=== PATIENT | female | born 1995 | race Caucasian/White ===

== ENCOUNTER → 2017-06-10 13:33 | Outpatient (CLI) | payer BC | END | disposition home or self-care (01) | LOC: D.LDO 13:33 | DX: O36.8130 Decreased fetal movements, third trimester, not applicable or unspecified (principal); Z3A.00 Weeks of gestation of pregnancy not specified ==

== ENCOUNTER → 2017-07-29 11:19 | Outpatient (CLI) | payer BC ==
[2017-07-29 12:12] LABS: PROTEIN - URINE 14.4 mg/dL (0.0-11.9)
== END | disposition home or self-care (01) ==
LOC: D.LDO 11:19
PROVIDERS: Obstetrics & Gynecology
DX: O16.3 Unspecified maternal hypertension, third trimester (principal); Z3A.31 31 weeks gestation of pregnancy; O36.8130 Decreased fetal movements, third trimester, not applicable or unspecified

== ENCOUNTER 2017-08-31 15:18 | Inpatient (IN) | payer BC ==
[2017-08-31] VITALS (23 sets, daily range): BP systolic 142–187; BP diastolic 72–107; BMI 49.3
[~2017-08-31] VITALS: Ht 172.7 cm; Wt 147.0 kg
--- NOTE | ~2017-08-31 | OP ---
PATIENT NAME: ELLIOT TORRES MEDICAL RECORD: [id number] :93 LOCATION:[id number] ADMISSION DATE:08/31/17 SURGEON: HOMAR COLIN MD DATE OF OPERATION: 08/31/2017 PREOPERATIVE DIAGNOSES: 1. Intrauterine at 36 weeks. 2. Severe preeclampsia, remote from delivery. POSTOPERATIVE DIAGNOSES: 1. Intrauterine at 36 weeks. 2. Severe preeclampsia, remote from delivery. PROCEDURE: A primary low transverse section with vacuum assist. SURGEON: Homar Colin MD ESTIMATED BLOOD LOSS: 1000 cc. INTRAVENOUS FLUIDS: Per anesthesia record. FINDINGS: 1. Viable female infant, Apgars 9 at 1 and 9 at 5. 2. Placenta delivered manually intact, 3-vessel cord. 3. Grossly normal adnexa bilaterally. SPECIMENS: Placenta and cord for gases. COMPLICATIONS: None apparent. PROCEDURE IN DETAIL: The patient was taken to the operating room where regional anesthesia was achieved without difficulty. At this point, the patient was prepped and draped in normal sterile fashion in the dorsal lithotomy position. SCDs were on and functioning appropriately. A catheter was in place and bladder was draining freely. Following prep and drape, a Pfannenstiel skin incision was made, extended downward to the underlying subcutaneous fat to level of the fascia, which was then excised in the midline and extended bilaterally using the Pastrana scissors. The superior and inferior aspects of the fascial incision were then grasped with Jessú clamps times 2, tented upward, and sharply dissected from the underlying rectus muscle using the Bovie cautery and Pastrana scissors. The rectus muscles were then bluntly in the midline and the peritoneum entered sharply at the superior aspect of the incision using the Metzenbaum scissors. Peritoneal incision was made inferiorly and laterally using the Metzenbaum scissors. A bladder blade was then placed into the pelvis, then a bladder flap was created by excising the anterior leaf of the broad ligament across the lower uterine segment. A low transverse incision was then made and extended by pressure on the superior and inferior aspects of the incision. The infant's head was noted to be extended. A Kiwi vacuum was then placed on the occiput and correction to head flexion was achieved without traction on the neck resulting in immediate delivery of the vertex, one application, no pop offs. No evidence of trauma. No traction placed on the neck. Following delivery of the body, the infant was bulb suctioned. Cord was clamped times 2, cut, and the infant was handed to the awaiting nursery team. At this point, cord was obtained for gases. The placenta was removed manually intact, 3-vessel cord was noted. The uterus was exteriorized, cleared OPERATIVE REPORT [id number] ELLIOT TORRES of all clots and debris, and vigorously massaged until good uterine tone was noted. The uterine incision was repaired with 0 Vicryl in a running locked fashion times 2 with good hemostasis noted. The posterior cul-de-sac was then thoroughly irrigated and uterus replaced into the pelvis. The anterior cul-de-sac was then thoroughly irrigated and good hemostasis was again noted from the uterine incision. At this point, counts were correct times 2 for sponges, needles, and instruments. The fascia was repaired with 0 loop PDS times 1 and the skin repaired with john. The patient tolerated procedure well and was transferred to postanesthesia recovery stable without incident. TRANSINT:[id number] Voice Confirmation ID: [id number] DOCUMENT ID: [id number] HOMAR COLIN MD at 1126 CC: [id number] DICTATION DATE: 09/30/17717 [employer] OPERATOR: 09/30/17 1137 DIS IN 09/02/17 [facility] [address] [place] [address]
[2017-08-31 16:27] LABS: BASOPHILS 0.2 % (0-2); EOSINOPHILS 0.7 % (0-7); HEMATOCRIT 35.7 % (36.0-48.0); HEMOGLOBIN 12.1 g/dL (12-16); IMMATURE GRANULOCYTES 0.3 % (0-5); LYMPHOCYTES 17.1 % (15-50); MCH 30.5 pg (26.0-34.0); MCHC 33.9 g/dL (31.0-37.0); MCV 89.9 fL (80.0-100.0); MEAN PLATELET VOLUME 10.9 fL (7.4-10.4); MONOCYTES 3.1 % (2-11); NEUTROPHILS 78.6 % (40-80); PLATELET COUNT 196 10x3/uL (130-400); RBC 3.97 10x6/uL (4.00-5.40); RDW 13.1 % (11.5-14.5); WBC 12.6 10x3/uL (4.8-10.8)
[2017-08-31 16:36] LABS: APPEARANCE CLOUDY (CLEAR); BILIRUBIN NEGATIVE (NEGATIVE); COLOR YELLOW (YELLOW); GLUCOSE NEGATIVE (NEGATIVE); KETONE NEGATIVE (NEGATIVE); NITRITE NEGATIVE (NEGATIVE); PROTEIN 1+ mg/dL (NEGATIVE); SPECIFIC GRAVITY 1.025 (1.005-1.020); UROBILINOGEN NORMAL (NORMAL)
[2017-08-31 16:41] LABS: ALBUMIN 2.1 g/dL (3.4-5.0); ALKALINE PHOSPHATASE 95 U/L (46-116); ALT (SGPT) 12 U/L (10-68); BILIRUBIN - INDIRECT 0.07 mg/dL (0.00-1.00); BILIRUBIN - TOTAL 0.12 mg/dL (0.2-1.3); CALC OSMOLALITY 273 mosm/kg (275-300); CALCIUM 8.6 mg/dL (8.5-10.1); CARBON DIOXIDE 21.6 mmol/L (21.0-32.0); CHLORIDE - SERUM 106 mmol/L (98-107); CREATININE - SERUM 0.8 mg/dL (0.6-1.3); GLUCOSE 114 mg/dL (74-106); POTASSIUM - SERUM 3.7 mmol/L (3.5-5.1); PROTEIN - SERUM 6.4 g/dL (6.4-8.2); SODIUM 137 mmol/L (136-145); UREA NITROGEN 11 mg/dL (7-18); URIC ACID 4.4 mg/dL (2.6-7.2); eGFR NON AFRICAN AMERICAN > 90 mL/min (90-120)
[2017-08-31 16:43] LABS: BILIRUBIN - DIRECT 0.05 mg/dL (0.00-0.30)
[2017-08-31 20:23] LABS: UDS - AMPHET NEGATIVE QUAL (NEGATIVE); UDS - BARB NEGATIVE QUAL (NEGATIVE); UDS - BENZO NEGATIVE QUAL (NEGATIVE); UDS - COCAINE NEGATIVE QUAL (NEGATIVE); UDS - OPIATE NEGATIVE QUAL (NEGATIVE); UDS - PCP NEGATIVE QUAL (NEGATIVE); UDS - THC NEGATIVE QUAL (NEGATIVE)
[2017-09-01] VITALS (21 sets, daily range): BP systolic 131–168; BP diastolic 67–92
[2017-09-01 02:07] LABS: MCH 30.1 pg (26.0-34.0); MCHC 33.3 g/dL (31.0-37.0); MCV 90.2 fL (80.0-100.0); MEAN PLATELET VOLUME 11.1 fL (7.4-10.4); RBC 3.66 10x6/uL (4.00-5.40); RDW 13.1 % (11.5-14.5); WBC 14.9 10x3/uL (4.8-10.8)
[2017-09-01 08:13] LABS: BASOPHILS 0.2 % (0-2); EOSINOPHILS 0.9 % (0-7); HEMATOCRIT 35.1 % (36.0-48.0); HEMOGLOBIN 11.8 g/dL (12-16); IMMATURE GRANULOCYTES 0.3 % (0-5); LYMPHOCYTES 16.8 % (15-50); MCH 30.6 pg (26.0-34.0); MCHC 33.6 g/dL (31.0-37.0); MCV 90.9 fL (80.0-100.0); MONOCYTES 4.1 % (2-11); NEUTROPHILS 77.7 % (40-80); PLATELET COUNT 177 10x3/uL (130-400); RBC 3.86 10x6/uL (4.00-5.40); RDW 13.5 % (11.5-14.5); WBC 11.6 10x3/uL (4.8-10.8)
[2017-09-01 13:01] LABS: HEMATOCRIT 31.7 % (36.0-48.0); HEMOGLOBIN 10.8 g/dL (12-16); MCH 30.7 pg (26.0-34.0); MCHC 34.1 g/dL (31.0-37.0); MCV 90.1 fL (80.0-100.0); RBC 3.52 10x6/uL (4.00-5.40); RDW 13.4 % (11.5-14.5); WBC 9.1 10x3/uL (4.8-10.8)
[2017-09-02 03:13] VITALS: BP 145/82
[2017-09-02 07:30] VITALS: BP 171/91
[2017-09-02 09:00] VITALS: BP 143/70
[2017-09-02] MEDS ORDERED: HYDROCODONE-APA1 TAB PO (10:55)
[2017-09-02] MEDS ORDERED: NORMODYNE / TR100 MG (10:56)
[2017-09-02] MEDS ORDERED: IBUPROFEN600 MG PO (10:56)
[2017-09-02 12:40] VITALS: BP 145/76
[2017-09-02 14:02] VITALS: Ht 172.7 cm; Wt 147.0 kg
[2017-09-03 06:13] LABS: RAPID PLASMA REAGIN Non Reactive (Non Reactive)
== END 2017-09-02 14:30 | disposition home or self-care (01) | DRG 766 ==
LOC: D.LD 15:18
PROVIDERS: Obstetrics & Gynecology
PROC: 10D00Z1 Extraction of Products of Conception, Low, Open Approach (ICD-10-PCS; principal; 2017-08-31 17:30)
DX: O14.14 Severe pre-eclampsia complicating childbirth (principal); Z3A.36 36 weeks gestation of pregnancy; Z37.0 Single live birth; O99.214 Obesity complicating childbirth; O60.14X0 Preterm labor third trimester with preterm delivery third trimester, not applicable or unspecified

== ENCOUNTER 2019-01-22 16:24 | Emergency (ER) | payer BC ==
[~2019-01-22] VITALS: Ht 172.7 cm; Wt 110.5 kg
[~2019-01-22 16:24] MED LIST: HYDROCODONE-APA1 TAB PO; IBUPROFEN600 MG PO; NORMODYNE / TR100 MG
[2019-01-22 16:41] VITALS: Ht 172.7 cm; Wt 110.5 kg
[2019-01-22 17:19] LABS: BASOPHILS 0.3 % (0-2); EOSINOPHILS 1.6 % (0-7); HEMATOCRIT 36.1 % (36.0-48.0); HEMOGLOBIN 12.3 g/dL (12-16); IMMATURE GRANULOCYTES 0.4 % (0-5); LYMPHOCYTES 26.7 % (15-50); MCH 28.9 pg (26.0-34.0); MCHC 34.1 g/dL (31.0-37.0); MCV 84.7 fL (80.0-100.0); MEAN PLATELET VOLUME 10.3 fL (7.4-10.4); MONOCYTES 4.1 % (2-11); NEUTROPHILS 66.9 % (40-80); RBC 4.26 10x6/uL (4.00-5.40); WBC 10.8 10x3/uL (4.8-10.8)
[2019-01-22 17:20] LABS: PLATELET COUNT 227 10x3/uL (130-400)
[2019-01-22 17:26] LABS: APPEARANCE CLEAR (CLEAR); BILIRUBIN NEGATIVE (NEGATIVE); COLOR STRAW (YELLOW); GLUCOSE NEGATIVE (NEGATIVE); KETONE NEGATIVE (NEGATIVE); NITRITE NEGATIVE (NEGATIVE); PROTEIN NEGATIVE (NEGATIVE); SPECIFIC GRAVITY 1.005 (1.005-1.020); UROBILINOGEN NORMAL (NORMAL)
[2019-01-22 17:28] LABS: BACTERIA FEW /hpf (NONE SEEN); RED CELLS - URINE RARE /hpf (0-5); WHITE CELLS - URINE OCC /hpf (0-5)
[2019-01-22 17:50] LABS: ALBUMIN 3.4 g/dL (3.4-5.0); ALKALINE PHOSPHATASE 53 U/L (46-116); ALT (SGPT) 16 U/L (10-68); BILIRUBIN - TOTAL 0.17 mg/dL (0.2-1.3); CALC OSMOLALITY 276 mosm/kg (275-300); CALCIUM 8.4 mg/dL (8.5-10.1); CARBON DIOXIDE 27.8 mmol/L (21.0-32.0); CHLORIDE - SERUM 104 mmol/L (98-107); CREATININE - SERUM 0.9 mg/dL (0.6-1.3); GLUCOSE 96 mg/dL (74-106); POTASSIUM - SERUM 3.6 mmol/L (3.5-5.1); PROTEIN - SERUM 7.4 g/dL (6.4-8.2); SODIUM 139 mmol/L (136-145); UREA NITROGEN 10 mg/dL (7-18); eGFR NON AFRICAN AMERICAN 81 mL/min (90-120)
[2019-01-22 18:13] LABS: HCG - QUANTITATIVE (MATERNAL) 1706 mIU/mL
[2019-01-22 18:54] VITALS: BP 148/80
== END 2019-01-22 18:52 | disposition home or self-care (01) ==
LOC: D.ER 16:24
PROVIDERS: Family Medicine
DX: O26.891 Other specified pregnancy related conditions, first trimester (principal); Z3A.01 Less than 8 weeks gestation of pregnancy; J01.90 Acute sinusitis, unspecified

== ENCOUNTER 2019-02-14 04:26 | Emergency (ER) | payer BC ==
[~2019-02-14] VITALS: Ht 172.7 cm; Wt 119.5 kg
[2019-02-14 04:35] VITALS: Ht 172.7 cm; Wt 119.5 kg
[2019-02-14 05:02] LABS: APPEARANCE CLOUDY (CLEAR); BACTERIA NONE SEEN /hpf (NONE SEEN); BILIRUBIN NEGATIVE (NEGATIVE); COLOR PINK (YELLOW); EPITHELIAL CELLS 0-5 /hpf (0-5); GLUCOSE NEGATIVE (NEGATIVE); KETONE NEGATIVE (NEGATIVE); NITRITE NEGATIVE (NEGATIVE); PROTEIN NEGATIVE (NEGATIVE); RED CELLS - URINE >50 /hpf (0-5); UROBILINOGEN NORMAL (NORMAL); WHITE CELLS - URINE 0-5 /hpf (0-5)
[2019-02-14 05:09] LABS: BASOPHILS 0.4 % (0-2); EOSINOPHILS 1.9 % (0-7); HEMATOCRIT 38.1 % (36.0-48.0); IMMATURE GRANULOCYTES 0.1 % (0-5); LYMPHOCYTES 29.9 % (15-50); MCH 29.1 pg (26.0-34.0); MCHC 34.1 g/dL (31.0-37.0); MCV 85.4 fL (80.0-100.0); MEAN PLATELET VOLUME 10.1 fL (7.4-10.4); MONOCYTES 3.4 % (2-11); NEUTROPHILS 64.3 % (40-80); PLATELET COUNT 232 10x3/uL (130-400); RBC 4.46 10x6/uL (4.00-5.40); RDW 13.7 % (11.5-14.5); WBC 8.6 10x3/uL (4.8-10.8)
[2019-02-14 05:30] LABS: ALBUMIN 3.4 g/dL (3.4-5.0); ALKALINE PHOSPHATASE 51 U/L (46-116); ALT (SGPT) 20 U/L (10-68); BILIRUBIN - TOTAL 0.21 mg/dL (0.2-1.3); CALC OSMOLALITY 277 mosm/kg (275-300); CALCIUM 8.7 mg/dL (8.5-10.1); CHLORIDE - SERUM 105 mmol/L (98-107); CREATININE - SERUM 0.9 mg/dL (0.6-1.3); GLUCOSE 99 mg/dL (74-106); POTASSIUM - SERUM 4.1 mmol/L (3.5-5.1); PROTEIN - SERUM 7.6 g/dL (6.4-8.2); SODIUM 140 mmol/L (136-145); UREA NITROGEN 11 mg/dL (7-18); eGFR NON AFRICAN AMERICAN 81 mL/min (90-120)
[2019-02-14 05:38] LABS: HCG - QUANTITATIVE (MATERNAL) 954 mIU/mL
[2019-02-14 09:11] VITALS: BP 143/93
[2019-02-17] MEDS ORDERED: IBUPROFEN800 MG PO (11:38)
[2019-02-17] MEDS ORDERED: TYLENOL #4 W/CO1 TAB PO (11:38)
== END 2019-02-14 09:00 | disposition home or self-care (01) ==
LOC: D.ER 04:26
PROVIDERS: Family Medicine
DX: O03.9 Complete or unspecified spontaneous abortion without complication (principal)

== ENCOUNTER 2019-02-18 07:42 | Day surgery (SDC) | payer BC ==
[2019-02-17 12:08] LABS: BASOPHILS 0.3 % (0-2); EOSINOPHILS 1.4 % (0-7); HEMATOCRIT 36.2 % (36.0-48.0); HEMOGLOBIN 12.2 g/dL (12-16); IMMATURE GRANULOCYTES 0.1 % (0-5); LYMPHOCYTES 25.9 % (15-50); MCH 29.1 pg (26.0-34.0); MCHC 33.7 g/dL (31.0-37.0); MCV 86.4 fL (80.0-100.0); MEAN PLATELET VOLUME 9.7 fL (7.4-10.4); MONOCYTES 3.3 % (2-11); PLATELET COUNT 229 10x3/uL (130-400); RBC 4.19 10x6/uL (4.00-5.40); RDW 13.6 % (11.5-14.5); WBC 7.6 10x3/uL (4.8-10.8)
[~2019-02-18] VITALS: Ht 172.7 cm; Wt 120.2 kg
[~2019-02-18 07:42] MED LIST changes: +IBUPROFEN800 MG PO; +TYLENOL #4 W/CO1 TAB PO
[2019-02-18 08:13] VITALS: BP 149/99; Ht 172.7 cm; Wt 120.2 kg
--- NOTE | 2019-02-19 07:58 | OP ---
PATIENT NAME: ELLIOT TORRES MEDICAL RECORD: [id number] :93 LOCATION:D[facility] ADMISSION DATE: SURGEON: VENKAT NAIK MD DATE OF OPERATION: 02/18/2019 PREOPERATIVE DIAGNOSIS: Missed . POSTOPERATIVE DIAGNOSIS: Missed . PROCEDURE: Suction D&E. ATTENDING: Venkat Naik MD HAUNTED HISTORY TOUR GUIDE: Homar Delgado. ANESTHESIA: General. FINDINGS: Uterus is enlarged to approximately 9-week size. Vaginal vault is unremarkable. Moderate amounts of products of conception returned at the time of suction D&E. SPECIMENS REMOVED: Products of conception. SPECIMEN DISPOSITION: Pathology. FLUIDS: 400 cc. ESTIMATED BLOOD LOSS: Minimal. URINE OUTPUT: Quantity sufficient catheterization at the beginning of this procedure. COMPLICATIONS: None. DRAINS: None. INDICATIONS: The patient is a 23-year-old G2, para 1 with a known missed . The patient has been having some cramping and bleeding. The patient is consented for dilation and evacuation. DESCRIPTION OF PROCEDURE: After informed consent was assured, the patient was taken to the operating room where anesthetic was obtained. The patient was now prepped and draped in usual sterile fashion after being placed in Yellofin stirrups. Speculum was introduced in the vagina and the cervix visualized. The cervix grasped with single tooth tenaculum and serially dilated to accommodate an 8 curved suction curette. This curette passed to the fundus and suction applied. The products of conceptions were removed on several passes. Sharp curettage was now performed with good cry throughout. Sponge, lap, and needle counts correct times 2 as the single-tooth tenaculum was removed. A ring forceps placed over the puncture sites to obtain hemostasis at the cervix. This was removed prior to the patient being placed on a gurney. TRANSINT:[id number] Voice Confirmation ID: [id number] DOCUMENT ID: [id number] OPERATIVE REPORT [id number] ELLIOT TORRES VENKAT NAIK MD at 0758 CC: [id number] DICTATION DATE: 02/18/19 0941 AIR SEALING TECHNICIAN: 02/18/19 0951 [facility] 02/18/19 [id number] [place] [address]
== END 2019-02-18 12:00 | disposition home or self-care (01) ==
LOC: D.OPS 07:42 → D.PAN 08:30 → D.OPS 09:30
PROVIDERS: ATTEND Obstetrics & Gynecology
DX: O02.1 Missed abortion (principal)

== ENCOUNTER 2020-02-27 11:37 | Outpatient (CLI) | payer BC ==
[2019-02-18 08:13] VITALS: BMI 40.3
== END 2020-02-27 13:25 | disposition home or self-care (01) ==
LOC: D.LDO 11:37
PROVIDERS: ATTEND Obstetrics & Gynecology
DX: O26.859 Spotting complicating pregnancy, unspecified trimester (principal); Z3A.00 Weeks of gestation of pregnancy not specified